=== PATIENT | female | born 1965 | race Caucasian/White ===

== ENCOUNTER 2017-06-02 18:22 | Observation (INO) | payer OTHER ==
--- NOTE | 2017-06-02 18:58 | ED PDOC ---
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 according to her sons-she began tilting bowl that was help in the left hand and began slouching against the wall and developed disorganized speech. according to the sons-she was slurring her words somewhat, but more so saying things that did not make sense. her son's called EMS-an en route pt improved somewhat but is very tired, stating she has decreased energy. Pt states that she also takes ambien for insomnia-states that she did not take an ambien tonight. Pt denies: numbness/weakness in UE/LE, but admits to a generalized weakness. denies dizziness, vision changes, changes in memory or concentration. Pt denies Headache, chest pain, abdominal pain. no previous CVA hx. NIHSS Stroke Scale - Date/Time Evaluation Performed Date Performed: 06/02/17 Time Performed: 19:06 When Was NIHSS Performed: Code Stroke - How Severe is the Stroke Level of Consciousness: 1=Drowsy LOC to Questions: 0=Both comments correct LOC to commands: 0=Obeys both correctly Best Gaze: 0=Normal Visual: 0=No visual loss Facial: 0=Normal Motor Arm - Left: 0=No drift Motor Arm - Right: 0=No drift Motor Leg - Left: 0=No drift Motor Leg - Right: 1=Drift before 5 sec Limb Ataxia: 0=Absent Sensory: 0=Normal Best Language: 0=No aphasia Dysarthia: 0=Normal articulation Extinction & Inattention (Neglect): 0=Normal, no object Score: 2 rTPA Inclusion/Exclusion - Inclusion Criteria for Altepase Patient is 18 years or Older: Yes The Clinical Diagnosis of Ischemic Stroke That is Causing a Potentially Disabling Neurological Deficit: No Time of Onset is Well Established to be Less Than 270 Minute Before Treatment Would Begin: Yes Risk/Benefit Discussed With Patient/Family Member Present: Yes - Exclusion Criteria for Altepase Uncontrolled Hypertension at Time of Treatment (Systolic BP above 185 or Diastolic BP above 110 mmHg): No Active Internal Bleeding: No Known Bleeding Diathesis Including but Not Limited to: Platelets Below 100,000/ mm,PTT Above 40 sec After Heparin Use, Current Use of Oral Anitcoagulant With INR Greater Than 1.7 or PT Greater Than 15 secs: No Evidence of an Intracranial Hemorrhage: No Evidence of Major Acute Infarct With Signs Greater Than 1/3 MCA Territory: No Suspicion of Subarachnoid Hemorrhage on Pretreatment Evaluation Even if CT Head Negative For Hemorrhage: No Past Medical History Reviewed: Historical Data, Nursing Documentation, Vital Signs Vital Signs: Last Vital Signs Temp 98.0 F 06/02/17 18:31 Pulse 90 06/02/17 18:31 Resp 16 06/02/17 18:31 BP 121/69 06/02/17 18:31 Pulse Ox 99 06/02/17 18:31 - Medical History PMH: HTN, Hypercholesterolemia - Family History Family History: States: No Known Family Hx - Social History Current smoker - smoking cessation education provided: No Ex-Smoker (has not smoked in the last 12 months): No - Home Medications Home Medications: Ambulatory Orders Medication Instructions Recorded Atorvastatin [Lipitor] 10 mg PO DAILY 06/02/17 Metoprolol Succinate [Toprol XL] 25 mg PO DAILY 06/02/17 Pantoprazole Sodium [Protonix] 40 mg PO DAILY 06/02/17 Tizanidine HCl [Zanaflex] 4 mg PO BID PRN 06/02/17 Zolpidem [Ambien] 10 mg PO HS PRN 06/02/17 - Allergies Allergies/Adverse Reactions: Allergies Allergy/AdvReac Type Severity Reaction Status Date / Time No Known Allergies Allergy Verified 06/02/17 18:30 Review of Systems ROS Statement: Except As Marked, All Systems Reviewed And Found Negative Constitutional: Positive for: Weakness Cardiovascular: Negative for: Chest Pain, Palpitations Respiratory: Negative for: Cough, Shortness of Breath Neurological: Positive for: Weakness, Change in Speech, Confusion. Negative for : Numbness, Altered Mental Status, Headache, Dizziness Psych: Negative for: Depression, Suicidal ideation Physical Exam - Reviewed Nursing Documentation Reviewed: Yes Vital Signs Reviewed: Yes - Physical Exam Appears: Positive for: Non-toxic, No Acute Distress, Uncomfortable (sluggish) Head Exam: Positive for: ATRAUMATIC, NORMAL INSPECTION, NORMOCEPHALIC Skin: Positive for: Normal Color, Warm, DRY Eye Exam: Positive for: EOMI, Normal appearance, PERRL ENT: Positive for: Normal ENT Inspection Cardiovascular/Chest: Positive for: Regular Rate, Rhythm Respiratory: Positive for: CNT, Normal Breath Sounds Gastrointestinal/Abdominal: Positive for: Normal Exam, Bowel Sounds, Soft Back: Positive for: Normal Inspection Extremity: Positive for: Normal ROM Neurologic/Psych: Positive for: Alert, education analyst II-XII (intact), Oriented. Negative for: Motor/Sensory Deficits, Mood/Affect, Aphasia, Facial Droop - Laboratory Results Result Diagrams: 06/02/17 19:23 06/02/17 19:23 - ECG ECG: Positive for: Viewed By Me (viewed by MD Moni) ECG Rhythm: Positive for: Normal QRS, Normal ST Segment, Sinus Rhythm O2 Sat by Pulse Oximetry: 99 - Radiology X-Ray: Interpreted by Me X-Ray Interpretation: No Acute Disease - Progress ED Course And Treament: pt presents with indication of possible CVA. code stroke activated. MD Moni made aware Orders Category Date Time Status TYPE AND SCREEN Stat BBK 06/02/17 18:54 Uncollected HEAD W/O (CODE STROKE) [CT] Stat CT 06/02/17 18:54 Ordered ELECTROCARDIOGRAM Stat Cardiology 06/02/17 18:54 Ordered COMP METABOLIC PANEL Stat Chem 06/02/17 18:54 Uncollected HEMOGLOBIN A1C Stat Chem 06/02/17 18:54 Uncollected LIPID PANEL Stat Chem 06/02/17 18:54 Uncollected TROPONIN I Stat Chem 06/02/17 18:54 Uncollected EKG-ED [EDNURTX] STAT ED Care 06/02/17 18:54 Ordered CHEST PORTABLE [RAD] Stat Exams 06/02/17 18:54 Ordered CBC (WITH DIFFERENTIAL) Stat ENZO 06/02/17 18:54 Uncollected PARTIAL THROMBOPLASTIN TIME [COAG] Stat ENZO 06/02/17 18:54 Uncollected PROTHROMBIN TIME [COAG] Stat ENZO 06/02/17 18:54 Uncollected Property Accountant CONT NURSING 06/02/17 18:54 Ordered IV Insertion (Saline Lock) ONCE NURSING 06/02/17 18:54 Ordered ED Obtain Labs STAT Pt Care 06/02/17 18:54 Ordered Glucose, Blood, POC STAT Pt Care 06/02/17 18:54 Ordered Nursing Swallow Screen ONCE Pt Care 06/02/17 18:54 Ordered Vital Signs Q15MIN Pt Care 06/02/17 18:54 Ordered Re-evaluation Time: 20:02 Condition: Improving,but remains with symptoms - Physician Consult Information Time Consulting Physican Contacted: 20:02 Physician Contacted: Julius Mark Outcome Of Conversation: suggests ASA, EEG, MRA, Cartoid doppler in the AM. Medical Decision Making Medical Decision Making: Pt will be admitted for stoke like symptoms with MD Ida with nuero consult with MD Jas. ct scan: FINDINGS: Brain: Ventricles are normal in size and configuration. There is no midline shift. There are no intraaxial or extra-axial mass lesions or areas of hemorrhage. There are no abnormal fluid collections. Perez-white differentiation is maintained. Ventricles: See above. Bones/joints: Bones: Cranial vault is intact. Soft tissues: unremarkable Sinuses: There is no acute sinusitis. Ears and mastoids: Middle ears and mastoids are unremarkable IMPRESSION: No acute intracranial abnormality Thank you for allowing us to participate in the care of your patient. Dictated and Authenticated by: Vero Siddiqui MD 06/02/2017 7:20 PM Eastern Time ([place] & [place]) Disposition - Clinical Impression Clinical Impression: Acute weakness, CVA (cerebrovascular accident) - Patient ED Disposition Is Patient to be Admitted: Yes - Disposition Disposition Time: 20:07 Condition: STABLE Instructions: Weakness (ED) Forms: [facility] (Faroese) - POA Present On Arrival: None Core Measure Indicators: Code Stroke
--- NOTE | 2017-06-02 19:20 | CT ---
EXAM: CT Head Without Intravenous Contrast EXAM DATE/TIME: 06/02/2017 6:54 PM CLINICAL HISTORY: 51 years old, female; Pain; Other: Code stroke TECHNIQUE: Axial computed tomography images of the head/brain without intravenous contrast. All CT scans at this facility use one or more dose reduction techniques, viz.: automated exposure control; ma/kV adjustment per patient size (including targeted exams where dose is matched to indication; i.e. head); or iterative reconstruction technique. Coronal and sagittal reformatted images were created and reviewed. COMPARISON: There are no prior studies for comparison. FINDINGS: Brain: Ventricles are normal in size and configuration. There is no midline shift. There are no intra-axial or extra-axial mass lesions or areas of hemorrhage. There are no abnormal fluid collections. Perez-white differentiation is maintained. Ventricles: See above. Bones/joints: Bones: Cranial vault is intact. Soft tissues: unremarkable Sinuses: There is no acute sinusitis. Ears and mastoids: Middle ears and mastoids are unremarkable IMPRESSION: No acute intracranial abnormality
[2017-06-02 19:30] LABS: BASO % 0.8 % (0.0-2.0); EOS # 0.1 K/uL (0.0-0.7); EOS % 2.5 % (0.0-4.0); HEMATOCRIT 38.7 % (34.0-47.0); LYMPH # 1.5 K/uL (1.0-4.3); LYMPH % 28.3 % (20.0-40.0); MEAN CELL VOLUME 89.3 fl (81.0-99.0); MEAN CORPUSCULAR HEMOGLOBIN 29.7 pg (27.0-31.0); MEAN CORPUSCULAR HGB CONC 33.3 g/dL (33.0-37.0); MEAN PLATELET VOLUME 9.6 fl (7.2-11.7); MONO # 0.5 K/uL (0.0-0.8); MONO % 8.6 % (0.0-10.0); NEUT # 3.2 K/uL (1.8-7.0); NEUT % 59.8 % (50.0-75.0); RED CELL DISTRIBUTION WIDTH 13.8 % (11.5-14.5); WHITE BLOOD COUNT 5.3 K/uL (4.8-10.8)
[2017-06-02 19:40] LABS: PARTIAL THROMBOPLASTIN TIME 31.4 Seconds (25.6-37.1)
[2017-06-02 19:41] LABS: ALB/GLOB RATIO 1.2 (1.0-2.1); ALKALINE PHOSPHATASE 103 U/L (38-126); ALT/SGPT 33 U/L (9-52); AST/SGOT 25 U/L (14-36); BILIRUBIN,TOTAL 0.5 mg/dl (0.2-1.3); BLOOD UREA NITROGEN 10 mg/dl (7-17); CARBON DIOXIDE 30 mmol/L (22-30); CHLORIDE 104 mmol/L (98-107); CHOLESTEROL 144 mg/dL (0-199); GFR AFRICAN-AMERICAN > 60; GLUCOSE,RANDOM 95 mg/dL (65-105); POTASSIUM 3.6 MMOL/L (3.6-5.0); SODIUM 140 mmol/l (132-148)
[2017-06-03 00:11] LABS: RBC URINE < 1 /hpf (0-3); URINE BACTERIA RARE (<OCC); URINE BILIRUBIN NEGATIVE (NEGATIVE); URINE BLOOD NEGATIVE (NEGATIVE); URINE COLOR STRAW (YELLOW); URINE GLUCOSE (UA) NEG (Normal); URINE KETONE NEGATIVE (NEGATIVE); URINE LEUKOCYTE ESTERASE NEG Leu/uL (Negative); URINE PROTEIN NEGATIVE (NEGATIVE); URINE UROBILINOGEN 0.2-1.0 mg/dL (0.2-1.0); WBC URINE < 1 /hpf (0-5)
[2017-06-03 06:05] LABS: HEMATOCRIT 36.9 % (34.0-47.0); MEAN CORPUSCULAR HEMOGLOBIN 29.7 pg (27.0-31.0); MEAN CORPUSCULAR HGB CONC 33.3 g/dL (33.0-37.0); RED CELL DISTRIBUTION WIDTH 13.3 % (11.5-14.5); WHITE BLOOD COUNT 6.7 K/uL (4.8-10.8)
[2017-06-03 06:47] LABS: ALB/GLOB RATIO 1.2 (1.0-2.1); ALKALINE PHOSPHATASE 101 U/L (38-126); ALT/SGPT 31 U/L (9-52); AST/SGOT 22 U/L (14-36); BILIRUBIN,TOTAL 0.4 mg/dl (0.2-1.3); BLOOD UREA NITROGEN 10 mg/dl (7-17); CALCIUM 8.8 mg/dL (8.4-10.2); CARBON DIOXIDE 28 mmol/L (22-30); CHLORIDE 106 mmol/L (98-107); CHOLESTEROL 133 mg/dL (0-199); GFR AFRICAN-AMERICAN > 60; GLUCOSE,RANDOM 90 mg/dL (65-105); POTASSIUM 3.8 MMOL/L (3.6-5.0); SODIUM 143 mmol/l (132-148); TOTAL PROTEIN 7.3 G/DL (6.3-8.2)
--- NOTE | 2017-06-03 07:56 | CP.PCM.HP ---
History of Present Illness - History of Present Illness History of Present Illness: A 51 year old female came for sudden onset staring, confusion and near fall. As per her son, yesterday evening around 6 PM at home, she was standing and trying to eat a cup of noodles, but all of sudden she began to spill it. The floor became slippery and she sat down, she had slurred speech. Her son called 911. She is in usual health status, and came back to the [facility] in 2013 from [place]. She was taking half tablet of 10 mg of Ambien for insomnia, and has been taking 25 mg of metoprolol, 10 mg of atorvastatin and pantoprazole tablets. She denies smoking or alcohol drinking. Her family history revealed her father of MD at the age of 72 and her mother of multiple medical problems including heart when she was 44 years old. The patient has three grown up children. Present on Admission - Present on Admission Any Indicators Present on Admission: No History of DVT/PE: No History of Uncontrolled Diabetes: No Urinary Catheter: No Decubitus Ulcer Present: No Review of Systems - Constitutional Constitutional: absent: Daytime Sleepiness - EENT Eyes: Dry Eye Nose/Mouth/Throat: absent: Sore Throat - Cardiovascular Cardiovascular: absent: Chest Pain - Respiratory Respiratory: absent: Cough, Dyspnea - Gastrointestinal Gastrointestinal: absent: Abdominal Pain, Bloating, Nausea, Vomiting - Neurological Neurological: Headaches Past Patient History - Past Social History Smoking Status: Never Smoked - CARDIAC Hx Hypercholesterolemia: Yes Hx Hypertension: Yes - HEMATOLOGICAL/ONCOLOGICAL Hx Blood Disorders: Yes Hx Anemia: Yes - PSYCHIATRIC Hx Substance Use: No Other/Comment: Insomnia - SURGICAL HISTORY Hx Section: Yes (x3) Hx Tubal Ligation: Yes - ANESTHESIA Hx Anesthesia: Yes Meds Allergies/Adverse Reactions: Allergies Allergy/AdvReac Type Severity Reaction Status Date / Time No Known Allergies Allergy Verified 06/02/17 18:30 Physical Exam - Constitutional Appears: No Acute Distress - Respiratory Exam Respiratory Exam: Clear to Auscultation Bilateral, NORMAL BREATHING PATTERN - Cardiovascular Exam Cardiovascular Exam: REGULAR RHYTHM. absent: Systolic Murmur - GI/Abdominal Exam GI & Abdominal Exam: Normal Bowel Sounds, Soft. absent: Tenderness - Neurological Exam Neurological exam: Alert, Oriented x3 Results - Vital Signs Recent Vital Signs: Last Vital Signs Temp 98.3 F 06/03/17 06:37 Pulse 62 06/03/17 06:37 Resp 17 06/03/17 06:37 BP 129/83 06/03/17 06:37 Pulse Ox 98 06/03/17 06:37 - Labs Result Diagrams: 06/03/17 05:35 06/03/17 05:35 Labs: Laboratory Results - last 24 hr 06/02/17 06/02/17 06/02/17 19:11 19:15 19:23 WBC 5.3 RBC 4.34 Hgb 12.9 Hct 38.7 MCV 89.3 MCH 29.7 MCHC 33.3 RDW 13.8 Plt Count 155 MPV 9.6 Neut % (Auto) 59.8 Lymph % (Auto) 28.3 [place] % (Auto) 8.6 Eos % (Auto) 2.5 Baso % (Auto) 0.8 Neut # 3.2 Lymph # 1.5 [place] # 0.5 Eos # 0.1 Baso # 0.0 ESR PT INR APTT Sodium Potassium Chloride Carbon Dioxide Anion Gap BUN Creatinine Est GFR ( Amer) Est GFR (Non-Af Amer) Random Glucose Calcium Total Bilirubin AST ALT Alkaline Phosphatase Troponin I Total Protein Albumin Globulin Albumin/Globulin Ratio Triglycerides Cholesterol LDL Cholesterol Direct HDL Cholesterol Vitamin B12 Urine Color Urine Clarity Urine pH Ur Specific Cook Sta Urine Protein Urine Glucose (UA) Urine Ketones Urine Blood Urine Nitrate Urine Bilirubin Urine Urobilinogen Ur Leukocyte Esterase Urine RBC (Auto) Urine Microscopic WBC Ur Squamous Epith Cells Urine Bacteria Urine Opiates Screen Urine Methadone Screen Ur Barbiturates Screen Ur Phencyclidine Scrn Ur Amphetamines Screen U Benzodiazepines Scrn U Oth Cocaine Metabols U Cannabinoids Screen Alcohol, Quantitative < 10 Blood Type O POSITIVE Antibody Screen Negative BBK History Checked No verified bt 06/02/17 06/02/17 06/02/17 19:23 19:23 21:39 WBC RBC Hgb Hct MCV MCH MCHC RDW Plt Count MPV Neut % (Auto) Lymph % (Auto) [place] % (Auto) Eos % (Auto) Baso % (Auto) Neut # Lymph # [place] # Eos # Baso # ESR PT 11.1 INR 1.0 APTT 31.4 Sodium 140 Potassium 3.6 Chloride 104 Carbon Dioxide 30 Anion Gap 9 L BUN 10 Creatinine 0.7 Est GFR ( Amer) > 60 Est GFR (Non-Af Amer) > 60 Random Glucose 95 Calcium 9.0 Total Bilirubin 0.5 AST 25 ALT 33 Alkaline Phosphatase 103 Troponin I < 0.0120 Total Protein 8.0 Albumin 4.3 Globulin 3.7 Albumin/Globulin Ratio 1.2 Triglycerides 133 Cholesterol 144 LDL Cholesterol Direct 58 HDL Cholesterol 52 Vitamin B12 492 Urine Color Urine Clarity Urine pH Ur Specific Cook Sta Urine Protein Urine Glucose (UA) Urine Ketones Urine Blood Urine Nitrate Urine Bilirubin Urine Urobilinogen Ur Leukocyte Esterase Urine RBC (Auto) Urine Microscopic WBC Ur Squamous Epith Cells Urine Bacteria Urine Opiates Screen Urine Methadone Screen Ur Barbiturates Screen Ur Phencyclidine Scrn Ur Amphetamines Screen U Benzodiazepines Scrn U Oth Cocaine Metabols U Cannabinoids Screen Alcohol, Quantitative Blood Type Antibody Screen BBK History Checked 06/02/17 06/02/17 06/03/17 23:58 23:58 00:21 WBC RBC Hgb Hct MCV MCH MCHC RDW Plt Count MPV Neut % (Auto) Lymph % (Auto) [place] % (Auto) Eos % (Auto) Baso % (Auto) Neut # Lymph # [place] # Eos # Baso # ESR 30 PT INR APTT Sodium Potassium Chloride Carbon Dioxide Anion Gap BUN Creatinine Est GFR ( Amer) Est GFR (Non-Af Amer) Random Glucose Calcium Total Bilirubin AST ALT Alkaline Phosphatase Troponin I Total Protein Albumin Globulin Albumin/Globulin Ratio Triglycerides Cholesterol LDL Cholesterol Direct HDL Cholesterol Vitamin B12 Urine Color Straw Urine Clarity Clear Urine pH 7.0 Ur Specific Cook Sta 1.005 Urine Protein Negative Urine Glucose (UA) Neg Urine Ketones Negative Urine Blood Negative Urine Nitrate Negative Urine Bilirubin Negative Urine Urobilinogen 0.2-1.0 Ur Leukocyte Esterase Neg Urine RBC (Auto) < 1 Urine Microscopic WBC < 1 Ur Squamous Epith Cells < 1 Urine Bacteria Rare Urine Opiates Screen Negative Urine Methadone Screen Negative Ur Barbiturates Screen Negative Ur Phencyclidine Scrn Negative Ur Amphetamines Screen Negative U Benzodiazepines Scrn Negative U Oth Cocaine Metabols Negative U Cannabinoids Screen Negative Alcohol, Quantitative Blood Type Antibody Screen BBK History Checked 06/03/17 06/03/17 05:35 05:35 WBC 6.7 RBC 4.15 Hgb 12.3 Hct 36.9 MCV 89.0 MCH 29.7 MCHC 33.3 RDW 13.3 Plt Count 170 MPV Neut % (Auto) Lymph % (Auto) [place] % (Auto) Eos % (Auto) Baso % (Auto) Neut # Lymph # [place] # Eos # Baso # ESR PT INR APTT Sodium 143 Potassium 3.8 Chloride 106 Carbon Dioxide 28 Anion Gap 12 BUN 10 Creatinine 0.7 Est GFR ( Amer) > 60 Est GFR (Non-Af Amer) > 60 Random Glucose 90 Calcium 8.8 Total Bilirubin 0.4 AST 22 ALT 31 Alkaline Phosphatase 101 Troponin I Total Protein 7.3 Albumin 4.0 Globulin 3.3 Albumin/Globulin Ratio 1.2 Triglycerides 114 Cholesterol 133 LDL Cholesterol Direct 55 HDL Cholesterol 47 Vitamin B12 Urine Color Urine Clarity Urine pH Ur Specific Cook Sta Urine Protein Urine Glucose (UA) Urine Ketones Urine Blood Urine Nitrate Urine Bilirubin Urine Urobilinogen Ur Leukocyte Esterase Urine RBC (Auto) Urine Microscopic WBC Ur Squamous Epith Cells Urine Bacteria Urine Opiates Screen Urine Methadone Screen Ur Barbiturates Screen Ur Phencyclidine Scrn Ur Amphetamines Screen U Benzodiazepines Scrn U Oth Cocaine Metabols U Cannabinoids Screen Alcohol, Quantitative Blood Type Antibody Screen BBK History Checked Assessment & Plan - Assessment and Plan (Free Text) Assessment: R/O CVA R/O TIA sleep narcolepsy ? Plan: neuro check aspirin neurology consult brain MRI - Date & Time Date: 06/03/17 Time: 07:59 Decision To Admit - . Bed Request Type: Telemetry Admitting Physician: Jeremy Prieto
--- NOTE | 2017-06-03 08:02 | US ---
PROCEDURE: Duplex ultrasound of the carotid and vertebral arteries. HISTORY: TIA like symptoms COMPARISON: None available. TECHNIQUE: Grayscale and duplex Doppler evaluation of the cervical carotid and vertebral arteries were performed. The common carotid, carotid bifurcations and cervical ICA and proximal ECA were evaluated. The vertebral arteries were evaluated for gross patency and direction. FINDINGS: RIGHT CAROTID ARTERIES: Common Carotid Artery: Normal. Maximal flow velocity of 89.2 cm/s. Carotid Bifurcation: Intimal thickening is present Internal Carotid Artery:Normal. Maximal flow velocity of 61.4 cm/s. External Carotid Artery (proximal branches): Normal. Maximal flow velocity of 54.8 cm/s. ICA/CCA Ratio: 0.7 LEFT CAROTID ARTERIES: Common Carotid Artery: Intimal thickening is present Maximal flow velocity of 89.2 cm/s. Carotid Bifurcation: Normal. Internal Carotid Artery:Heterogeneous plaque formation. Maximal flow velocity of 71.4 cm/s. External Carotid Artery (proximal branches): Normal. Maximal flow velocity of 58.1 cm/s. ICA/CCA Ratio: 0.8 VERTEBRAL ARTERIES: Right Vertebral Artery: Patent. Antegrade flow. Left Vertebral Artery: Patent. Antegrade flow. OTHER FINDINGS: None. IMPRESSION: Right ICA degree of stenosis: Less than 50% Left ICA degree of stenosis: Less than 50% Reference Internal Carotid Artery (ICA) Peak Systolic Velocity (PSV) for above: 1. Less than 50% stenosis less than 125 cm/s peak systolic velocity 2. 50-69% stenosis 125-230cm/s peak systolic velocity 3. Greater than 70% but less than near occlusion greater than 230 cm/s peak systolic velocity Concordant results (preliminary interpretation) provided by [facility]. Procedure Completed: 20:38 Preliminary ([facility]) Report: Dictated and Authenticated: 21:53 Final Interpretation: 08:01 June 03, 2017.
[2017-06-03] MEDS ORDERED: Metoprolol Succinate 25 mg XL Tab PO SCH (09:00)
[2017-06-03] MEDS ORDERED: Pantoprazole 40 mg EC Tab PO SCH (09:00)
[2017-06-03] MEDS ORDERED: Enoxaparin 40 mg Syringe SC SCH (11:00)
--- NOTE | 2017-06-03 11:47 | CARD ---
APPROVED REPORT EKG Measurement Heart [id number] <Conclusion> Normal sinus rhythm Normal ECG
--- NOTE | 2017-06-03 12:11 | MRI ---
PROCEDURE: Magnetic Resonance Angiography Brain HISTORY: CVA COMPARISON: None available. TECHNIQUE: 3D time of flight MR angiography of the intracranial arteries was performed. Rotating maximum intensity projection images were generated. FINDINGS: INTERNAL CAROTID ARTERIES: Normal in caliber. The skull base, petrous, cavernous and supraclinoid segments are bilaterally widely patient. ANTERIOR CEREBRAL ARTERIES: Normal in caliber. A1 and A2 segments are widely patent. Smaller distal branches unremarkable, as visualized. MIDDLE CEREBRAL ARTERIES: Normal in caliber. M1 and M2 segments are widely patent. Perisylvian branches grossly symmetric. POSTERIOR CIRCULATION: Basilar Artery: Normal in caliber. Distal Vertebral Arteries: The right vertebral artery is hypoplastic. The left vertebral artery is dominant intracranially, an anatomic variant. Posterior Cerebral Arteries: Normal in caliber. Posterior Inferior Cerebellar Arteries: Normal in caliber. ANEURYSM/ VASCULAR MALFORMATIONS: None. OTHER FINDINGS: None. IMPRESSION: No evidence of occlusion, definite significant stenosis or saccular aneurysm.
--- NOTE | 2017-06-03 14:05 | RAD ---
HISTORY: exam COMPARISON: No prior. FINDINGS: LUNGS: The lungs are well inflated. There is a small calcified nodule in the right lower lobe. No focal consolidation. PLEURA: No significant pleural effusion identified, no pneumothorax apparent. CARDIOVASCULAR: Normal. OSSEOUS STRUCTURES: No significant abnormalities. VISUALIZED UPPER ABDOMEN: Normal. OTHER FINDINGS: None. IMPRESSION: No active pulmonary disease.
[2017-06-03 15:05] VITALS: O2SAT 100
[2017-06-03 17:47] LABS: FOLATE > 20.0 ng/mL
--- NOTE | 2017-06-03 19:44 | CP.PCM.CON ---
History of Present Illness - History of Present Illness History of Present Illness: CONSULT DICTATED PARASOMNIA Vs SEIZURES ?? TIA CONTINUE PRESENET MANAGEMENT NEEDS AMBULATORY VIDEO EEG AN OP NO AMBIEN DISCUSSED WITH ATTENDING Past Patient History - Past Social History Smoking Status: Never Smoked - CARDIAC Hx Hypercholesterolemia: Yes Hx Hypertension: Yes - HEMATOLOGICAL/ONCOLOGICAL Hx Blood Disorders: Yes Hx Anemia: Yes - MUSCULOSKELETAL/RHEUMATOLOGICAL Hx Falls: No - PSYCHIATRIC Hx Substance Use: No - SURGICAL HISTORY Hx Section: Yes (x3) Hx Tubal Ligation: Yes - ANESTHESIA Hx Anesthesia: Yes Meds Allergies/Adverse Reactions: Allergies Allergy/AdvReac Type Severity Reaction Status Date / Time No Known Allergies Allergy Verified 06/02/17 18:30 - Medications Medications: Current Medications Acetaminophen (Tylenol 325mg Tab) 650 mg PO Q6 PRN PRN Reason: Headache Last Admin: 06/03/17 08:16 Dose: 650 mg Aspirin (Aspirin Chewable) 81 mg PO DAILY [facility] Last Admin: 06/03/17 09:07 Dose: 81 mg Atorvastatin Calcium (Lipitor) 10 mg PO DAILY [facility] Last Admin: 06/03/17 09:07 Dose: 10 mg Enoxaparin Sodium (Lovenox) 40 mg SC DAILY [facility] PRN Reason: Protocol Last Admin: 06/03/17 12:30 Dose: Not Given Metoprolol Succinate (Toprol Xl) 25 mg PO DAILY [facility] Last Admin: 06/03/17 09:06 Dose: 25 mg Pantoprazole Sodium (Protonix Ec Tab) 40 mg PO DAILY [facility] Last Admin: 06/03/17 09:06 Dose: 40 mg Tizanidine HCl (Zanaflex) 4 mg PO BID PRN PRN Reason: Muscle spasm Results - Vital Signs Recent Vital Signs: Last Vital Signs Temp 98 F 06/03/17 12:09 Pulse 64 06/03/17 17:51 Resp 17 06/03/17 17:51 BP 113/75 06/03/17 15:00 Pulse Ox 100 06/03/17 17:51 - Labs Result Diagrams: 06/03/17 05:35 06/03/17 05:35 Labs: Laboratory Results - last 24 hr 06/02/17 06/02/17 06/02/17 07:08 18:55 19:11 WBC RBC Hgb Hct MCV MCH MCHC RDW Plt Count ESR Sodium Potassium Chloride Carbon Dioxide Anion Gap BUN Creatinine Est GFR ( Amer) Est GFR (Non-Af Amer) POC Glucose (mg/dL) 115 H Random Glucose Hemoglobin A1c 5.7 Calcium Total Bilirubin AST ALT Alkaline Phosphatase Troponin I C-React Prot High Sens Total Protein Albumin Globulin Albumin/Globulin Ratio Triglycerides Cholesterol LDL Cholesterol Direct HDL Cholesterol Vitamin B12 Folate Urine Color Urine Clarity Urine pH Ur Specific [place] Urine Protein Urine Glucose (UA) Urine Ketones Urine Blood Urine Nitrate Urine Bilirubin Urine Urobilinogen Ur Leukocyte Esterase Urine RBC (Auto) Urine Microscopic WBC Ur Squamous Epith Cells Urine Bacteria Urine Opiates Screen Urine Methadone Screen Ur Barbiturates Screen Ur Phencyclidine Scrn Ur Amphetamines Screen U Benzodiazepines Scrn U Oth Cocaine Metabols U Cannabinoids Screen Alcohol, Quantitative RPR Blood Type O POSITIVE Antibody Screen Negative BBK History Checked No verified bt 06/02/17 06/02/17 06/02/17 19:15 19:23 21:39 WBC RBC Hgb Hct MCV MCH MCHC RDW Plt Count ESR Sodium Potassium Chloride Carbon Dioxide Anion Gap BUN Creatinine Est GFR ( Amer) Est GFR (Non-Af Amer) POC Glucose (mg/dL) Random Glucose Hemoglobin A1c Calcium Total Bilirubin AST ALT Alkaline Phosphatase Troponin I < 0.0120 C-React Prot High Sens 2.23 Total Protein Albumin Globulin Albumin/Globulin Ratio Triglycerides Cholesterol LDL Cholesterol Direct 58 HDL Cholesterol Vitamin B12 Folate Urine Color Urine Clarity Urine pH Ur Specific [place] Urine Protein Urine Glucose (UA) Urine Ketones Urine Blood Urine Nitrate Urine Bilirubin Urine Urobilinogen Ur Leukocyte Esterase Urine RBC (Auto) Urine Microscopic WBC Ur Squamous Epith Cells Urine Bacteria Urine Opiates Screen Urine Methadone Screen Ur Barbiturates Screen Ur Phencyclidine Scrn Ur Amphetamines Screen U Benzodiazepines Scrn U Oth Cocaine Metabols U Cannabinoids Screen Alcohol, Quantitative < 10 RPR Blood Type Antibody Screen BBK History Checked 06/02/17 06/02/17 06/02/17 21:39 21:39 23:58 WBC RBC Hgb Hct MCV MCH MCHC RDW Plt Count ESR Sodium Potassium Chloride Carbon Dioxide Anion Gap BUN Creatinine Est GFR ( Amer) Est GFR (Non-Af Amer) POC Glucose (mg/dL) Random Glucose Hemoglobin A1c Calcium Total Bilirubin AST ALT Alkaline Phosphatase Troponin I C-React Prot High Sens Total Protein Albumin Globulin Albumin/Globulin Ratio Triglycerides Cholesterol LDL Cholesterol Direct HDL Cholesterol Vitamin B12 492 Folate > 20.0 Urine Color Urine Clarity Urine pH Ur Specific [place] Urine Protein Urine Glucose (UA) Urine Ketones Urine Blood Urine Nitrate Urine Bilirubin Urine Urobilinogen Ur Leukocyte Esterase Urine RBC (Auto) Urine Microscopic WBC Ur Squamous Epith Cells Urine Bacteria Urine Opiates Screen Negative Urine Methadone Screen Negative Ur Barbiturates Screen Negative Ur Phencyclidine Scrn Negative Ur Amphetamines Screen Negative U Benzodiazepines Scrn Negative U Oth Cocaine Metabols Negative U Cannabinoids Screen Negative Alcohol, Quantitative RPR Nonreactive Blood Type Antibody Screen BBK History Checked 06/02/17 06/03/17 06/03/17 23:58 00:21 05:35 WBC 6.7 RBC 4.15 Hgb 12.3 Hct 36.9 MCV 89.0 MCH 29.7 MCHC 33.3 RDW 13.3 Plt Count 170 ESR 30 Sodium Potassium Chloride Carbon Dioxide Anion Gap BUN Creatinine Est GFR ( Amer) Est GFR (Non-Af Amer) POC Glucose (mg/dL) Random Glucose Hemoglobin A1c Calcium Total Bilirubin AST ALT Alkaline Phosphatase Troponin I C-React Prot High Sens Total Protein Albumin Globulin Albumin/Globulin Ratio Triglycerides Cholesterol LDL Cholesterol Direct HDL Cholesterol Vitamin B12 Folate Urine Color Straw Urine Clarity Clear Urine pH 7.0 Ur Specific [place] 1.005 Urine Protein Negative Urine Glucose (UA) Neg Urine Ketones Negative Urine Blood Negative Urine Nitrate Negative Urine Bilirubin Negative Urine Urobilinogen 0.2-1.0 Ur Leukocyte Esterase Neg Urine RBC (Auto) < 1 Urine Microscopic WBC < 1 Ur Squamous Epith Cells < 1 Urine Bacteria Rare Urine Opiates Screen Urine Methadone Screen Ur Barbiturates Screen Ur Phencyclidine Scrn Ur Amphetamines Screen U Benzodiazepines Scrn U Oth Cocaine Metabols U Cannabinoids Screen Alcohol, Quantitative RPR Blood Type Antibody Screen BBK History Checked 06/03/17 05:35 WBC RBC Hgb Hct MCV MCH MCHC RDW Plt Count ESR Sodium 143 Potassium 3.8 Chloride 106 Carbon Dioxide 28 Anion Gap 12 BUN 10 Creatinine 0.7 Est GFR ( Amer) > 60 Est GFR (Non-Af Amer) > 60 POC Glucose (mg/dL) Random Glucose 90 Hemoglobin A1c Calcium 8.8 Total Bilirubin 0.4 AST 22 ALT 31 Alkaline Phosphatase 101 Troponin I C-React Prot High Sens Total Protein 7.3 Albumin 4.0 Globulin 3.3 Albumin/Globulin Ratio 1.2 Triglycerides 114 Cholesterol 133 LDL Cholesterol Direct 55 HDL Cholesterol 47 Vitamin B12 Folate Urine Color Urine Clarity Urine pH Ur Specific [place] Urine Protein Urine Glucose (UA) Urine Ketones Urine Blood Urine Nitrate Urine Bilirubin Urine Urobilinogen Ur Leukocyte Esterase Urine RBC (Auto) Urine Microscopic WBC Ur Squamous Epith Cells Urine Bacteria Urine Opiates Screen Urine Methadone Screen Ur Barbiturates Screen Ur Phencyclidine Scrn Ur Amphetamines Screen U Benzodiazepines Scrn U Oth Cocaine Metabols U Cannabinoids Screen Alcohol, Quantitative RPR Blood Type Antibody Screen BBK History Checked
[2017-06-03 19:53] VITALS: BP 109/79; PULSE 58; RESP 18; TEMP 98.7
--- NOTE | 2017-06-04 00:45 | CON ---
DATE: 06/03/2017 LOCATION: The patient is in room number, Emergency Room bed 15. REASON FOR CONSULTATION: Right-sided weakness and change in mental status. CHIEF COMPLAINT: The patient was brought into [facility] by ambulance with a history of change in mental status and slurred speech. From neurological point of view, I was called into evaluate her for further management. HISTORY OF PRESENT ILLNESS: The patient is a 51-year-old right-handed female in usual state of health, with her sons around 6 o'clock when she was drinking soup with noodles, she was dropping the noodles and soap on the floor. At the same time the body was leaning to the right side. The patient was noted to have slurred speech, immediately 911 was called. She was wrapped up into the ambulance and since then she could not able to recall how she came to the hospital in the emergency room. No history of fall. No history of trauma. No history of involuntary movements been observed or documented in the chart. No bowel or bladder incontinence. No similar episodes happened in the past. No history of head trauma in the past. No history of seizures in the past. PAST MEDICAL HISTORY: Hypertension, dyslipidemia, and insomnia. PERSONAL HISTORY: Denies smoking or alcohol use. ALLERGIES: NO KNOWN ALLERGIES. REVIEW OF SYSTEMS: Twelve-point system been reviewed. From neuro, change in mental status. MEDICATIONS: Aspirin, atorvastatin, Lovenox, Protonix, Toprol, Tylenol, and Zanaflex. PHYSICAL EXAMINATION: VITAL SIGNS: Blood pressure 113/75, mean artery pressure of 87, respiratory rate 16, temperature afebrile. NECK: Supple. No carotid bruits. HEART: Sounds regular. CHEST: Fair air entry. EXTREMITIES: No edema in legs. NEUROLOGICAL EXAMINATION: Mental Status Examination: She is awake, alert, oriented to person, place, and time. Speech is clear. Naming, repetition, fluency, comprehension, all within normal. Cranial Nerve Examination: Visual field intact. Pupils reactive to light. Extraocular movement normal. No nystagmus. No facial sensory deficit. No facial asymmetry. Hearing is normal. Tongue is midline. Good gag. Motor Examination: Outstretched hand with eyes closed, no drift noted. Power is symmetric on either side. Deep Tendon Reflexes: Biceps, brachialis, triceps 2+ on either side. Knees are 2+. Ankles are 1+. Plantars are downgoing. Coordination: [id number] test is intact. Gait is normal. Tandem is normal. WORKUP: MR angiogram been reviewed, no stenosis. Carotid Doppler, no significant stenosis. Electroencephalogram reviewed, no paroxysmal activities or focal slowing noted. LABORATORY DATA: Blood workup; WBC 6.7, hemoglobin 12.3, hematocrit 36.9, platelet 170. PT 11.1, INR 1.0, PTT 31.4. Sodium 143, potassium 3.8, chloride 106, bicarbonate 28. GFR is more than 60. Hemoglobin A1c 5.7. Triglyceride 133, cholesterol 144, LDL of 58. B12 of 492, RPR nonreactive. Urinalysis shows no drugs. CONCLUSION: The patient presenting with episode of transient impaired memory consistent with either it is toxic manifestation from her Ambien, which has been taken versus partial complex seizures. The current examination does not show any long tract signs. RECOMMENDATIONS: The patient is stable for more than 24-hour period. The patient is clinically stable. If medically stable, the patient can be discharged and should have a followup visit as an outpatient. The patient should definitely need extended-hour ambulatory video electroencephalogram that can be done. Sleep hygiene been discussed with her, and further workup can be done for her insomnia. The patient is not advised to take Ambien. The patient's condition has been well discussed with her both sons. They are aware of the problem. The patient will be followed closely while she is in the hospital; otherwise, the patient will be followed by me as outpatient. Julius Mark MD MTDCristopher
[2017-06-04 07:03] LABS: HOMOCYSTEINE 7.3 umol/L (<10.4)
--- NOTE | 2017-06-05 09:29 | EEG ---
DATE: 06/02/2017 This is a 16-channel electroencephalogram of awake and drowsy adult. During the study, photic stimulation was performed. Hyperventilation was not performed. The resting electroencephalogram consists of 30 to 40 microvolts, moderate voltage 9 to 11 Hz alpha activity seen in parietal and occipital leads. Anteriorly, fast activity superimposed with 2 to 3 Hz delta activity seen at frontal and central leads. The photic stimulation did not evoke driving response noted at 2 to 20 Hz. IMPRESSION: This is a normal electroencephalogram of awake and drowsy adult. During the study, neither electroencephalographic paroxysmal activities nor focal slowing noted. Julius Mark MD
[2017-06-06 05:24] LABS: B2 GLYCOPROTEIN I AB(IGA) 12 SAU (<=20); B2 GLYCOPROTEIN I AB(IGG) <9 SGU (<=20); B2 GLYCOPROTEIN I AB(IGM) <9 SMU (<=20)
[2017-06-06 06:30] LABS: PHOSPHATIDYLSERINE AB IGA <20 U/mL (<20)
[2017-06-07 04:59] LABS: CARDIOLIPIN AB (IGA) <11 APL (<=11)
== END 2017-06-03 20:27 | disposition home or self-care (01) ==
LOC: H.ER 18:22 → H.ERHOLD 20:07
PROVIDERS: ADMIT Internal Medicine; ATTEND Internal Medicine
DX: R53.1 Weakness (principal); R47.81 Slurred speech; R41.0 Disorientation, unspecified; I10 Essential (primary) hypertension; E78.00 Pure hypercholesterolemia, unspecified; E78.5 Hyperlipidemia, unspecified; G47.00 Insomnia, unspecified
CPT/HCPCS: 70450; 70544; 71010; 80053; 80061; 80320; 80324; 80345; 80346; 80349; 80353; 80358; 80361; 81003; 82607; 82746; 82948; 83036; 83090; 83992; 84484; 85025; 85027; 85610; 85651; 85730; 86140; 86146; 86147; 86148; 86592; 86850; 86900; 93005; 93880; 95816; 99285; G0378